=== PATIENT | male | born 1995 | race Caucasian/White ===

== ENCOUNTER 2025-03-03 10:39 | Emergency (ER) | payer OTHER, SELFPAY ==
[2025-03-03 10:41] VITALS: BP 134/88; PULSE 85; RESP 14; TEMP 36.9; O2SAT 99; BMI 27.8
--- NOTE | 2025-03-03 10:57 | RAD_ITS ---
PROCEDURE: TIBIA FIBULA 2 VIEWS 03/03/2025 REASON FOR EXAM: MOWER FELL ON LEG TECHNIQUE: TIBIA FIBULA 2 VIEWS COMPARISON: None FINDINGS: No evidence of fracture. No radiopaque foreign body is seen. No significant soft tissue swelling. RAD/Tibia & Fibula 2 Views IMPRESSION: No acute abnormality is seen. Reading Location: [facility]
--- NOTE | 2025-03-03 10:58 | EX.ED.DYSGE1 ---
HPI History of Present Illness Chief Complaint: Lower Extremity Injury Narrative Narrative: Patient is a 30-year-old male with no known significant past medical history who presents to the emergency department chief complaint with left leg pain. Patient states that he was mowing when a [employer] mower flipped and landed on his left leg. 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 Patient states that his last tetanus shot was about a year ago. He has no other complaints and feels fine. PFSH PFSH Home Medications ?Medication ?Instructions ?Recorded ?Last Taken ?Type NK 03/03/25 Unknown History Allergy/AdvReac Type Severity Reaction Status Date / Time No Known Allergies Allergy Verified 03/03/25 10:45 Surgical History H/O hernia repair Social History household members: spouse current occupational status: employed Smoking Status: Never smoker ROS ROS ED ROS Narrative Constitutional: Denies any fevers, chills, headaches, lightness, dizziness Eyes: No change in vision Cardiovascular: Denies chest pain Respiratory: Denies coughing wheezing shortness of breath Abdomen: Denies abdominal pain nausea vomit diarrhea : Denies urinary symptoms Neurological: Denies numbness, wheeze, tingling Musculoskeletal: Complains of left lower extremity pain as noted above Skin: Complains of superficial abrasions to the left lower extremity from the mower landed on his leg EXAM Physical Exam Narrative Exam Narrative: General: Patient lying in bed rest comfortably did not appear to be acute distress Head: Atraumatic, normocephalic Eyes: PERRL bilaterally, EOMI by, no conjunctival injection noted Neck: Soft, supple, trachea midline Cardiovascular: Regular rate and rhythm no murmurs gallops rubs noted Respiratory: Clear to auscultation bilaterally Abdomen: Soft, nondistended, tender to palpation Musculoskeletal: Patient is some mild tenderness palpation over the left tib/fibular region, left thigh region Extremities: DP pulses +2/4 in the left lower extremity, +5/5 strength noted in the bilateral upper and lower extremities, no pedal edema on exam Neurological: Patient following commands knew that he was at [facility] years 2024 Skin: Warm, dry, tact no rashes or lesions noted Const Vital Signs: 03/03/25 10:41 03/03/25 12:40 Temperature 98.5 F Temperature Source Oral Pulse Rate 85 57 L Respiratory Rate 14 13 Blood Pressure 134/88 H Blood Pressure Mean 103 Pulse Ox 99 100 MDM MDM MDM Narrative Medical decision making narrative: Patient is a 30-year-old male who presents to the emergency department chief complaint of left leg pain after a mower rolled and landed on his left leg. On the differential diagnosis includes but limited to tibia/fibular fracture, femur fracture, superficial abrasions. Patient be given IM Toradol for pain. Patient's x-ray of his left femur reviewed by myself by radiology showed no acute fracture dislocations. Patient's x-ray of his tibia/fibula on the left side was reviewed by myself by radiology which showed no cute fracture or dislocation. Discussed results with the patient he would like to go home at this point time. Patient was advised to rotate Tylenol and ibuprofen [id number] for pain control. He is advised to follow-up with Workmen's Comp.. He is encouraged return with worsening symptoms or any concerns. He is agreeable this plan all question concerns answered he is discharged home in stable condition Radiography Diagnostic Testing: Clinical Impression(s) from Imaging Studies Tibia/Fibula X-Ray 03/03/25 10:57 IMPRESSION: No acute abnormality is seen. Reading Location: [id number] Femur X-Ray 03/03/25 11:50 IMPRESSION: No acute abnormality is seen. Reading Location: [facility] Discharge Plan Triage Chief Complaint: Lower Extremity Injury ED Provider: Axel Hudson Dx/Rx/DC Orders Clinical Impression: Left leg pain Prescriptions: No Action NK Primary Care Provider: Care Physician,No Primary Referrals: [facility] [Group of Physicians] - Care Physician,No Primary [Primary Care Provider] - Activity Restrictions/Additional Instructions: Follow-up with Workmen's Comp. Return with worsening symptoms or any concerns. Your x-rays did not show any acute findings. Print Language: Welsh Disposition Disposition: Home, Self Care
[2025-03-03] MEDS: Ketorolac 30 MG/ML Syringe IM (11:02)
--- NOTE | 2025-03-03 11:50 | RAD_ITS ---
PROCEDURE: FEMUR MIN 2 VIEWS 03/03/2025 REASON FOR EXAM: MOWER FELL ON LEG TECHNIQUE: FEMUR MIN 2 VIEWS COMPARISON: None FINDINGS: Bones: No fracture seen. Joints: Normal alignment at the hip and knee. Soft tissues: Soft tissues are unremarkable. Other: RAD/Femur Min 2 Views IMPRESSION: No acute abnormality is seen. Reading Location: [id number]
[2025-03-03 12:40] VITALS: PULSE 57; RESP 13; O2SAT 100
[2025-03-03 13:04] VITALS: BP 136/71; PULSE 72; RESP 18; TEMP 36.6; O2SAT 99
== END 2025-03-03 13:06 | disposition home or self-care (01) ==
PROVIDERS: Emergency Provider Emergency Medicine; Referring Provider Emergency Medicine; Visit Provider Emergency Medicine
DX: S80.812A Abrasion, left lower leg, initial encounter (principal); W28.XXXA Contact with powered lawn mower, initial encounter; Y93.H2 Activity, gardening and landscaping; Y99.0 Civilian activity done for income or pay
CPT/HCPCS: 73552; 73590; 96372; 99284